=== PATIENT | female | born 1950 | race Caucasian/White ===

== ENCOUNTER 2020-12-30 14:02 | Outpatient (CLI) | payer MEDICARE ==
--- NOTE | 2020-12-30 14:31 | RAD ---
Right calcaneus 2 views HISTORY: Heel pain. FINDINGS: The calcaneus is intact. Minimal osteophytosis of the articular surfaces. No acute fracture, dislocation, or aggressive osseous erosions. No significant plantar enthesophyte. IMPRESSION : No acute abnormalities are demonstrated.
== END 2020-12-30 14:03 | disposition home or self-care (01) ==
LOC: BICRAD 14:02
PROVIDERS: ATTEND Podiatrist
DX: M72.2 Plantar fascial fibromatosis (principal)